=== PATIENT | male | born 1990 | race Caucasian/White ===

== ENCOUNTER 2018-03-10 19:20 | Emergency (ER) | payer SELFPAY ==
[~2018-03-10] VITALS: Ht 177.8 cm; Wt 65.8 kg
[2018-03-10 20:00] VITALS: BP 128/80
[2018-03-10] MEDS ORDERED: cefTRIAXone SOD 1,000 MG VL IM ONE (21:45)
[2018-03-10] MEDS ORDERED: KETOROLAC TROMETH 60MG/2ML VIAL IM ONE (21:45)
== END 2018-03-10 22:40 | disposition home or self-care (01) ==
LOC: ER 19:20
DX: L02.01 Cutaneous abscess of face (principal)
CPT/HCPCS: 96372; 99284; J0696; J1885

== ENCOUNTER 2019-06-29 14:36 | Emergency (ER) | payer MEDICAID, OTHER ==
[~2019-06-29] VITALS: Ht 177.8 cm; Wt 70.3 kg
[2019-06-29] MEDS ORDERED: ONDANSETRON HCL 4 MG/2 ML VIAL IV ONE (16:00)
[2019-06-29] MEDS ORDERED: MORPHINE SULF INJ 2 MG/ML SYRINGE 1ML IV ONE (16:00)
[2019-06-29 16:54] VITALS: BP 109/67
== END 2019-06-29 17:08 | disposition short-term general hospital (02) ==
LOC: ER 14:36 → EDBD 14:36 → ER 17:08
DX: S09.90XA Unspecified injury of head, initial encounter (principal); F17.210 Nicotine dependence, cigarettes, uncomplicated; F12.90 Cannabis use, unspecified, uncomplicated; V49.49XA Driver injured in collision with other motor vehicles in traffic accident, initial encounter; Y93.89 Activity, other specified; Y99.8 Other external cause status; Y92.89 Other specified places as the place of occurrence of the external cause
CPT/HCPCS: 70450; 71250; 73130; 73562; 74176; 93005; 96374; 96375; 99285; J2270; J2405

== ENCOUNTER 2020-08-06 02:58 | Emergency (ER) | payer MEDICAID ==
[~2020-08-06] VITALS: Ht 177.8 cm; Wt 72.6 kg
[2020-08-06] MEDS ORDERED: SODIUM BICARBONATE 8.4% INJ 50ML SYRINGE IV ONE (03:00)
[2020-08-06] MEDS ORDERED: EPINEPHrine HCL 1 MG/10 ML SYRG IV ONE (03:00)
== END 2020-08-06 03:04 | disposition expired ==
LOC: EDBD 02:58 → ER 02:59
DX: I46.9 Cardiac arrest, cause unspecified (principal)
CPT/HCPCS: 31500; 92950; 99285; J0171